=== PATIENT | male | born 2000 | race Two or more races ===

== ENCOUNTER 2021-08-09 08:51 | Emergency (ER) | payer BC, OTHER ==
[~2021-08-09] VITALS: Ht 170.2 cm; Wt 170.1 kg
[2021-08-09 08:52] VITALS: BP 154/98
== END 2021-08-09 10:00 | disposition home or self-care (01) ==
LOC: ER 08:51
DX: K02.9 Dental caries, unspecified (principal); R22.0 Localized swelling, mass and lump, head; I10 Essential (primary) hypertension
CPT/HCPCS: 70450; 70486